=== PATIENT | female | born 2005 | race Two or more races ===

== ENCOUNTER 2025-07-17 22:14 | Emergency (ER) | payer OTHER ==
[~2025-07-17] VITALS: Ht 149.9 cm; Wt 54.4 kg
[2025-07-17 22:14] VITALS: BP 109/56
[2025-07-17 22:42] LABS: PLATELET COUNT (AUTO) 260 K/uL (179-408); RED BLOOD CELL COUNT(AUTO) 4.62 MIL/uL (3.63-4.92); RED CELL DISTRIBUTION WIDTH 13.5 % (12.3-17.7); WHITE BLOOD COUNT (AUTO) 15.3 K/uL (3.8-11.8)
[2025-07-17 22:51] LABS: CREATININE 0.7 mg/dL (0.6-1.3); SODIUM SERUM 143 mmol/L (136-145); UREA NITROGEN, BLOOD 18 mg/dL (7-18)
[2025-07-17 22:57] LABS: ASPARTATE AMINOTRANSFERASE 15 U/L (15-37); TOTAL PROTEIN, SERUM 7.4 g/dL (6.4-8.2)
[2025-07-17] MEDS ORDERED: BISMUTH SUBSALICYLATE 262 MG/15 ML UDC PO ONE (23:30)
[2025-07-17] MEDS ORDERED: CALCIUM CARBONATE 500 MG TAB.CHEW ONE (23:35)
[2025-07-17] MEDS: CALCIUM CARBONATE 500 MG TAB.CHEW PO STA (23:36)
[2025-07-18 00:04] VITALS: BP 110/55; TEMP 98; O2SAT 99
== END 2025-07-18 00:05 | disposition home or self-care (01) ==
LOC: ER 22:18
DX: R55 Syncope and collapse (principal); R06.02 Shortness of breath
CPT/HCPCS: 36415; 84484; 85025; A4606; A4663